=== PATIENT | female | born 1950 | race Caucasian/White ===

== ENCOUNTER → 2016-09-12 | Outpatient (CLI) | payer OTHER ==
--- NOTE | 2016-09-12 12:17 | MA ---
Screening Digital Mammogram With iCAD Analysis Clinical Indications: Routine screening. Technique: Standard cephalocaudal and mediolateral oblique projections are obtained. This examination is processed by the iCAD computer aided detection system. Comparison: September 2015, July 2014, July 2013, July 2012, July 2011, June 2011, S krys 2009 Breast density: Type B; Scattered fibroglandular densities. Findings: CAD was reviewed. No masses, suspicious calcifications or other signs of malignancy are see n. There has been no significant change in the appearance of either breast. Impression: Negative mammogram. BI-RADS 1. Recommendation: Routine mammographic screening in one year. [facility] will send a result letter to the patient. Negative mammography should not preclude additional workup of a clinically suspicious finding. The patient's information is entered into a reminder system with a target due date for her next mammo gram.
--- NOTE | 2016-09-13 08:21 | DX ---
Bone Densitometry Indication: Osteopenia. Technique: DEXA scan was performed on [employer] Discovery W Bone Densitometer. Comparison Study: July 30, 2014. Results: Lumbar Spine (L1-L4) BMD: 1.019 T-score: -0.3 Prior BMD: 1.056 Percent change: -3.5% Total Hip (Right) BMD: 0.672 T-score: -2.2 Femoral Neck (Right) BMD: 0.669 T-score: -1.6 Total Hip (Left) BMD: 0.702 T-score: -2.0 Prior BMD: 0.784 Percent change: -10.4% Femoral Neck (Left) BMD: 0.669 T-score: -1.6 Forearm (Left) BMD: 0.471 T-score: -1.8 Prior BMD: 0.487 Percent Change: -3.2% Conclusion: Osteopenia. In comparison to the previous study from July 2014, there has been a decrease in the patient's me asured BMD of the lumbar spine, total left hip, and left forearm. The scan types were dissimilar for the spine and the hips. The decrease in BMD of the left forearm is a significant change. Additional Comments: 1. By FRAX calculation, the estimated 10-year risk of any major osteoporotic fracture is 15%. The es timated 10-year risk of hip fracture is 1.9%. 2. Consider repeating this study in 2 years or as clinically indicated. NOTE: The risk of osteoporotic fracture increases approximately two-fold for each 1.0 SD decrease in T-score. The T-score represents the standard deviations from a young normal, same sex, reference po pulation. Low bone density is not the only risk factor for fracture. Clinical factors to consider include fall risk, previous osteoporotic fracture, family history of fractures, smoking, and low body weight. Patients who have an unexpectedly low BMD may need to be evaluated for secondary causes of low bone m ineral density. In comparing the present study to a prior study, lack of a significant increase or decrease in BMD ma y signify efficacy of the patient's present treatment. Bone mineral density measurements performed with densitometers produced by different manufacturers ar e not comparable. For the most reproducible BMD measurement, subsequent exams should be performed on the same densitometer.
== END ==
LOC: BMCIMAGING 09:32
DX: Z13.820 Encounter for screening for osteoporosis (principal); M85.80 Other specified disorders of bone density and structure, unspecified site
CPT/HCPCS: G0202

== ENCOUNTER → 2017-09-19 | Outpatient (CLI) | payer OTHER | LOC: BMCIMAGING 12:20 | PROVIDERS: ATTEND Internal Medicine | DX: Z12.31 Encounter for screening mammogram for malignant neoplasm of breast (principal) ==

== ENCOUNTER → 2018-11-01 | Outpatient (CLI) | payer OTHER | LOC: FIMAGING 10:16 | PROVIDERS: ATTEND Internal Medicine | DX: Z13.6 Encounter for screening for cardiovascular disorders (principal); Z82.49 Family history of ischemic heart disease and other diseases of the circulatory system; Z82.3 Family history of stroke ==

== ENCOUNTER → 2018-11-01 | Outpatient (CLI) | payer OTHER | LOC: FIMAGING 10:23 | PROVIDERS: ATTEND Internal Medicine | DX: Z13.820 Encounter for screening for osteoporosis (principal); M81.0 Age-related osteoporosis without current pathological fracture; Z78.0 Asymptomatic menopausal state; Z96.643 Presence of artificial hip joint, bilateral ==